=== PATIENT | female | born 1950 | race American Indian/Alaskan Native ===

== ENCOUNTER 2021-02-19 10:29 | Outpatient (CLI) | payer MEDICARE ==
--- NOTE | 2021-02-19 12:18 | XRay Report ---
CHEST 2 VIEWS INDICATION / CLINICAL INFORMATION: SUSPECTED EXPOSURE TO MOLD. COMPARISON: None available. FINDINGS: SUPPORT DEVICES: None. HEART / MEDIASTINUM: No significant abnormality. LUNGS / PLEURA: No significant pulmonary or pleural abnormality. No pneumothorax. ADDITIONAL FINDINGS: No significant additional findings. IMPRESSION: 1. No acute findings. Signer Name: Rubin Marte MD Signed: 02/19/2021 12:13 PM Workstation Name: [email or web address] [id number]
== END 2021-02-19 10:30 | disposition home or self-care (01) ==
LOC: XRAY 10:29
PROVIDERS: ATTEND Internal Medicine
DX: Z77.120 Contact with and (suspected) exposure to mold (toxic) (principal)
CPT/HCPCS: 71046